=== PATIENT | male | born 1955 | race Caucasian/White ===

== ENCOUNTER 2017-03-19 22:31 | Inpatient (IN) | payer OTHER ==
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
[2017-03-19 23:42] LABS: BASO % 0.5 % (0.0-2.0); EOS % 0.4 % (0.0-4.0); HEMATOCRIT 40.8 % (35.0-51.0); LYMPH # 1.4 K/uL (1.0-4.3); LYMPH % 18.5 % (20.0-40.0); MEAN CELL VOLUME 83.9 fl (80.0-94.0); MEAN CORPUSCULAR HEMOGLOBIN 28.7 pg (27.0-31.0); MEAN CORPUSCULAR HGB CONC 34.2 g/dL (33.0-37.0); MEAN PLATELET VOLUME 6.9 fl (7.2-11.7); MONO # 0.6 K/uL (0.0-0.8); MONO % 7.9 % (0.0-10.0); NEUT # 5.4 K/uL (1.8-7.0); NEUT % 72.7 % (50.0-75.0); NRBC % 0.1 % (0.0-0.0); RED CELL DISTRIBUTION WIDTH 14.7 % (11.5-14.5); WHITE BLOOD COUNT 7.4 K/uL (4.8-10.8)
[2017-03-19 23:51] LABS: ALB/GLOB RATIO 1.6 (1.0-2.1); ALCOHOL SERUM 65 mg/dl (0-10); ALKALINE PHOSPHATASE 105 U/L (38-126); ALT/SGPT 46 U/L (21-72); AST/SGOT 25 U/L (17-59); BILIRUBIN,TOTAL 1.2 mg/dl (0.2-1.3); BLOOD UREA NITROGEN 11 mg/dl (9-20); CALCIUM 9.1 mg/dL (8.4-10.2); CARBON DIOXIDE 27 mmol/L (22-30); CHLORIDE 93 mmol/L (98-107); GFR AFRICAN-AMERICAN > 60; GLUCOSE,RANDOM 107 mg/dL (75-110); POTASSIUM 3.6 MMOL/L (3.6-5.0); SODIUM 132 mmol/l (132-148)
[2017-03-20 01:25] LABS: RBC URINE 1 /hpf (0-3); URINE BILIRUBIN NEGATIVE (NEGATIVE); URINE BLOOD SMALL (NEGATIVE); URINE COLOR STRAW (YELLOW); URINE GLUCOSE (UA) NEG (Normal); URINE KETONE NEGATIVE (NEGATIVE); URINE LEUKOCYTE ESTERASE NEG Leu/uL (Negative); URINE PROTEIN NEGATIVE (NEGATIVE); URINE UROBILINOGEN 0.2-1.0 mg/dL (0.2-1.0); WBC URINE < 1 /hpf (0-5)
[2017-03-20] MEDS ORDERED: Sodium Chloride 0.9% 1,000 ML IV STA (02:08)
[2017-03-20 06:45] LABS: CHOLESTEROL 142 mg/dL (0-199)
[2017-03-20 07:15] LABS: THYROID STIMULATING HORMONE 8.72 mIU/ML (0.46-4.68)
[2017-03-20] MEDS: HCTZ/Losartan 12.5/50 Tab PO SCH (09:00)
[2017-03-20] MEDS: Cholecalciferol 1,000 INTLU TAB PO SCH (09:00)
--- NOTE | 2017-03-20 09:04 | RAD ---
HISTORY: Trauma COMPARISON: 05/23/2009. FINDINGS: LUNGS: No active pulmonary disease. PLEURA: No significant pleural effusion identified, no pneumothorax apparent. CARDIOVASCULAR: Normal. OSSEOUS STRUCTURES: No significant abnormalities. VISUALIZED UPPER ABDOMEN: Normal. OTHER FINDINGS: None. IMPRESSION: No active disease. No significant interval change compared to the prior examination(s).
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
--- NOTE | 2017-03-20 09:11 | CT ---
PROCEDURE: CT Cervical Spine without contrast HISTORY: <trauma> COMPARISON: None available. TECHNIQUE: Axial computed tomography images were obtained of the cervical spine without the use of intravenous contrast. Coronal and sagittal reformatted images were created and reviewed. Radiation dose: Total exam DLP = 436.84 mGy-cm. This CT exam was performed using one or more of the following dose reduction techniques: Automated exposure control, adjustment of the mA and/or kV according to patient size, and/or use of iterative reconstruction technique. FINDINGS: VERTEBRAE: No fracture. Normal alignment. No destructive bony lesion. DISCS/SPINAL CANAL/NEURAL FORAMINA: No significant central canal or neural foraminal stenosis. Discs heights are grossly preserved.Incidental finding(s): Non marginal osteophyte T1-T2 PARASPINAL SOFT TISSUES: Unremarkable. OTHER FINDINGS: Known craniotomy changes and underlying encephalomalacia chong change left cerebellar hemisphere. IMPRESSION: No significant or acute findings to account for/ related to the clinical presentation. Concordant results (preliminary interpretation) provided by [employer]. Procedure Completed: 1203 08:00 Preliminary ([facility]) Report: Dictated and Authenticated: 00:28 Final Interpretation: 09:09. March 20, 2017.
--- NOTE | 2017-03-20 09:14 | CT ---
PROCEDURE: CT Chest without contrast HISTORY: trauma COMPARISON: None. TECHNIQUE: Contiguous axial images were obtained through the chest without intravenous contrast enhancement. Sagittal and coronal reconstructions were performed. Radiation dose (DLP): 406.39 mGy-cm. This CT exam was performed using one or more of the following dose reduction techniques: Automated exposure control, adjustment of the mA and/or kV according to patient size, and/or use of iterative reconstruction technique. FINDINGS: LUNGS: Basilar atelectatic change, minimal. No discrete infiltrates, pulmonary nodules, masses. MEDIASTINUM: Unremarkable thoracic aorta. No aneurysm. Normal sized heart. Main pulmonary artery unremarkable. No vascular congestion. No lymphadenopathy. PLEURA: No pleural fluid. No pneumothorax. BONES: No acute fracture. No destructive lesion. UPPER ABDOMEN: Nonobstructing punctate right renal calculi. OTHER FINDINGS: None. IMPRESSION: No significant or acute findings to account for/ related to the clinical presentation. Additional benign and/or incidental findings described above. Concordant results (preliminary interpretation) provided by [employer]. Procedure Completed: 00:06 Preliminary ([facility]) Report: Dictated and Authenticated: 00:27 Final Interpretation: 09:12. March 20, 2017.
[2017-03-20 12:36] LABS: T4 8.81 ug/dl (5.5-11.0)
[2017-03-20] MEDS ORDERED: Gadodiamide 287 MG/ML VIAL (15ML) IV ONE (15:14)
--- NOTE | 2017-03-20 18:18 | MRI ---
PROCEDURE: MRI BRAIN WITH AND WITHOUT CONTRAST HISTORY: head injury, AMS COMPARISON: Head CT without contrast 03/19/2017. TECHNIQUE: Multiplanar, multisequence MR images of the brain were obtained with and without intravenous contrast enhancement. FINDINGS: HEMORRHAGE: A small area of signal dephasing is seen at the right external capsule anteriorly which appears to correspond to an area of punctate hyperdensity in the prior CT examination. While this may represent a small cavernoma, subacute hemorrhage is difficult to exclude here. Calcium deposition is a possibility though the amount of signal artifact appears greater than expected for the size of the punctate finding in the prior CT. Follow-up CT is advised to demonstrate stability of this finding. DWI: No evidence of an acute or early subacute infarction. BRAIN PARENCHYMA: Chronic lacune infarction seen at the right basal ganglia with likely prominent dilated perivascular spaces in the left basal ganglia. Underlying chronic lacunes are not excluded at the left basal ganglia however. Patient seen to be status post a left suboccipital craniectomy with postoperative changes/ cystic encephalomalacia seen at the left cerebellar hemisphere once again. Diffuse cerebral atrophy chronic microangiopathy are reiterated. No suspicious enhancement following gadolinium administration within this distribution with the remainder of the supra and infratentorial brain compartments. ENHANCEMENT: No abnormal intracranial enhancement. VENTRICLES: Unremarkable. No hydrocephalus. CRANIUM: Unremarkable. ORBITS: Grossly unremarkable. PARANASAL SINUSES/MASTOIDS: Clear VASCULAR SYSTEM: Skull base flow voids intact. OTHER FINDINGS: None . 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 Follow-up head CT is advised in 6-12 hours to demonstrate stability of this region. Status post prior left suboccipital craniectomy with postoperative changes noted in the left cerebellum once again. No abnormal intracranial enhancement including at the operative site. Right basal ganglia chronic lacune with dilated perivascular spaces favored over chronic lacunes at the left basal ganglia. Findings discussed with Dr. Hillman 03/20/2017 6:[address] as well as Dr. Brothers.
--- NOTE | 2017-03-20 18:59 | CARD ---
APPROVED REPORT EKG Measurement Heart [id number] <Conclusion> Normal sinus rhythm Normal ECG
--- NOTE | 2017-03-20 19:01 | CARD ---
APPROVED REPORT EKG Measurement Heart [id number] <Conclusion> Normal sinus rhythm Normal ECG
--- NOTE | 2017-03-20 20:03 | CP.PCM.CON ---
History of Present Illness - History of Present Illness History of Present Illness: CONSULT DICTATED POST CONCUSSION SYNDROME MRI BRAIN ??? HYPER DENSITY REPEAT CAT AM IF NEGATIVE FOR NEW BLEED NO FURTHER WORK UP RECURRENT SYNCOPY NEEDS EXTENDED HOUR AMBULATORY VIDEO EEG/ CARDIAC WORK UP / EP STUDIES Past Patient History - Past Medical History & Family History Past Medical History?: Yes - Past Social History Smoking Status: Never Smoked - CARDIAC Hx Cardiac Disorders: Yes Hx Hypercholesterolemia: Yes Hx Hypertension: Yes - PULMONARY Hx Respiratory Disorders: No - NEUROLOGICAL Hx Neurological Disorder: Yes - HEENT Hx HEENT Problems: No - RENAL Hx Chronic Kidney Disease: No - ENDOCRINE/METABOLIC Hx Diabetes Mellitus Type 2: Yes - HEMATOLOGICAL/ONCOLOGICAL Hx Blood Disorders: No - INTEGUMENTARY Hx Dermatological Problems: No - MUSCULOSKELETAL/RHEUMATOLOGICAL Hx Musculoskeletal Disorders: Yes - GASTROINTESTINAL Hx Gastrointestinal Disorders: No - GENITOURINARY/GYNECOLOGICAL Hx Genitourinary Disorders: Yes - PSYCHIATRIC Hx Psychophysiologic Disorder: No - SURGICAL HISTORY Hx Surgeries: Yes Other/Comment: Had neural blastoma removed - ANESTHESIA Hx Anesthesia: Yes Hx Anesthesia Reactions: No Hx Malignant Hyperthermia: No Meds Allergies/Adverse Reactions: Allergies Allergy/AdvReac Type Severity Reaction Status Date / Time No Known Allergies Allergy Verified 03/19/17 22:32 - Medications Medications: Current Medications Acetaminophen (Tylenol 325mg Tab) 650 mg PO Q4 PRN PRN Reason: Pain, Mild (1-3) Amlodipine Besylate (Norvasc) 5 mg PO DAILY [facility] Last Admin: 03/20/17 09:00 Dose: 5 mg Atorvastatin Calcium (Lipitor) 10 mg PO DAILY [facility] Last Admin: 03/20/17 08:59 Dose: 10 mg Cholecalciferol (Vitamin D) 2,000 iu PO DAILY [facility] Last Admin: 03/20/17 09:00 Dose: 2,000 iu HCTZ/Losartan Potassium (Hyzaar 12.5 Mg-50 Mg) 1 tab PO DAILY [facility] Last Admin: 03/20/17 09:00 Dose: 1 tab Metformin HCl (Glucophage) 850 mg PO BID [facility] Last Admin: 03/20/17 16:20 Dose: 850 mg Paroxetine HCl (Paxil) 30 mg PO DAILY [facility] Last Admin: 03/20/17 08:59 Dose: 30 mg Results - Vital Signs Recent Vital Signs: Last Vital Signs Temp 97.8 F 03/20/17 19:42 Pulse 77 03/20/17 19:42 Resp 20 03/20/17 19:42 BP 148/82 03/20/17 19:42 Pulse Ox 97 03/20/17 19:42 - Labs Result Diagrams: 03/19/17 23:30 03/19/17 23:30 Labs: Laboratory Results - last 24 hr 03/19/17 03/19/17 03/19/17 23:29 23:30 23:30 WBC 7.4 RBC 4.86 Hgb 13.9 Hct 40.8 MCV 83.9 MCH 28.7 MCHC 34.2 RDW 14.7 H Plt Count 313 MPV 6.9 L Neut % (Auto) 72.7 Lymph % (Auto) 18.5 L Holmes % (Auto) 7.9 Eos % (Auto) 0.4 Baso % (Auto) 0.5 Neut # 5.4 Lymph # 1.4 Holmes # 0.6 Eos # 0.0 Baso # 0.0 Sodium 132 Potassium 3.6 Chloride 93 L Carbon Dioxide 27 Anion Gap 16 BUN 11 Creatinine 0.7 L Est GFR ( Amer) > 60 Est GFR (Non-Af Amer) > 60 POC Glucose (mg/dL) 121 H Random Glucose 107 Hemoglobin A1c Calcium 9.1 Total Bilirubin 1.2 AST 25 ALT 46 Alkaline Phosphatase 105 Troponin I < 0.0120 Total Protein 8.0 Albumin 4.9 Globulin 3.1 Albumin/Globulin Ratio 1.6 Triglycerides Cholesterol LDL Cholesterol Direct HDL Cholesterol Thyroxine (T4) Total T3 TSH 3rd Generation Urine Color Urine Clarity Urine pH Ur Specific [place] Urine Protein Urine Glucose (UA) Urine Ketones Urine Blood Urine Nitrate Urine Bilirubin Urine Urobilinogen Ur Leukocyte Esterase Urine RBC (Auto) Urine Microscopic WBC Alcohol, Quantitative 65 H 03/20/17 03/20/17 03/20/17 01:11 02:25 05:41 WBC RBC Hgb Hct MCV MCH MCHC RDW Plt Count MPV Neut % (Auto) Lymph % (Auto) Holmes % (Auto) Eos % (Auto) Baso % (Auto) Neut # Lymph # Holmes # Eos # Baso # Sodium Potassium Chloride Carbon Dioxide Anion Gap BUN Creatinine Est GFR ( Amer) Est GFR (Non-Af Amer) POC Glucose (mg/dL) 110 Random Glucose Hemoglobin A1c 6.4 Calcium Total Bilirubin AST ALT Alkaline Phosphatase Troponin I Total Protein Albumin Globulin Albumin/Globulin Ratio Triglycerides Cholesterol LDL Cholesterol Direct HDL Cholesterol Thyroxine (T4) Total T3 TSH 3rd Generation Urine Color Straw Urine Clarity Clear Urine pH 6.0 Ur Specific [place] 1.006 Urine Protein Negative Urine Glucose (UA) Neg Urine Ketones Negative Urine Blood Small Urine Nitrate Negative Urine Bilirubin Negative Urine Urobilinogen 0.2-1.0 Ur Leukocyte Esterase Neg Urine RBC (Auto) 1 Urine Microscopic WBC < 1 Alcohol, Quantitative 03/20/17 03/20/17 03/20/17 05:41 06:49 10:47 WBC RBC Hgb Hct MCV MCH MCHC RDW Plt Count MPV Neut % (Auto) Lymph % (Auto) [place] % (Auto) Eos % (Auto) Baso % (Auto) Neut # Lymph # Holmes # Eos # Baso # Sodium Potassium Chloride Carbon Dioxide Anion Gap BUN Creatinine Est GFR ( Amer) Est GFR (Non-Af Amer) POC Glucose (mg/dL) 94 173 H Random Glucose Hemoglobin A1c Calcium Total Bilirubin AST ALT Alkaline Phosphatase Troponin I < 0.0120 Total Protein Albumin Globulin Albumin/Globulin Ratio Triglycerides 205 H Cholesterol 142 LDL Cholesterol Direct 72 HDL Cholesterol 33 Thyroxine (T4) Total T3 TSH 3rd Generation 8.72 H Urine Color Urine Clarity Urine pH Ur Specific [place] Urine Protein Urine Glucose (UA) Urine Ketones Urine Blood Urine Nitrate Urine Bilirubin Urine Urobilinogen Ur Leukocyte Esterase Urine RBC (Auto) Urine Microscopic WBC Alcohol, Quantitative 03/20/17 03/20/17 03/20/17 11:40 11:40 15:55 WBC RBC Hgb Hct MCV MCH MCHC RDW Plt Count MPV Neut % (Auto) Lymph % (Auto) [place] % (Auto) Eos % (Auto) Baso % (Auto) Neut # Lymph # Holmes # Eos # Baso # Sodium Potassium Chloride Carbon Dioxide Anion Gap BUN Creatinine Est GFR ( Amer) Est GFR (Non-Af Amer) POC Glucose (mg/dL) 109 Random Glucose Hemoglobin A1c Calcium Total Bilirubin AST ALT Alkaline Phosphatase Troponin I < 0.0120 Total Protein Albumin Globulin Albumin/Globulin Ratio Triglycerides Cholesterol LDL Cholesterol Direct HDL Cholesterol Thyroxine (T4) 8.81 Total T3 0.828 L TSH 3rd Generation Urine Color Urine Clarity Urine pH Ur Specific [place] Urine Protein Urine Glucose (UA) Urine Ketones Urine Blood Urine Nitrate Urine Bilirubin Urine Urobilinogen Ur Leukocyte Esterase Urine RBC (Auto) Urine Microscopic WBC Alcohol, Quantitative
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
[2017-03-20] MEDS: Lidocaine 5% Patch TD SCH (23:15)
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
[2017-03-21] MEDS: Cholecalciferol 1,000 INTLU TAB PO SCH (08:56)
--- NOTE | 2017-03-21 09:09 | EEG ---
DATE: 03/20/2017 This is a 16-channel electroencephalogram of awake and drowsy adult. During the study, photic stimulation was performed. Hyperventilation was not performed. The resting electroencephalogram consists of 20 to 30 microvolts diffuse theta activity seen at the parietal and occipital leads. Anteriorly, fast activity superimposed with 2 to 3 Hz delta activity seen at frontal and central leads. The photic stimulation did not evoke driving response noted at 2 to 20 Hz. IMPRESSION: This is an abnormal electroencephalogram because of persistent slowing throughout the record suggestive of bilateral cerebral dysfunction. This is probably secondary to metabolic, vascular or degenerative process. Please correlate the finding with the neurological and radiological studies. If clinical suspicion is high, the patient should have extended hour ambulatory video electroencephalogram. This can be done as outpatient. Alessio Hillman MD
[2017-03-21] MEDS: HCTZ/Losartan 12.5/50 Tab PO SCH (09:11)
[2017-03-21] MEDS: Lidocaine 5% Patch TD SCH (09:11)
--- NOTE | 2017-03-21 10:37 | CP.PCM.CON ---
History of Present Illness - History of Present Illness History of Present Illness: 62 year old male admitted with syncopal episode in the setting of alcohol use and known history of brain tumor. S/p fall and c/o of back pain. Pt denies cp or sob. Pt denies palpitations. Pt reports presyncopal episode in gym perhaps related to ? hypotension. Normal Sinus Rhythm on admission. No history of valvular heart disease. Past Patient History - Past Medical History & Family History Past Medical History?: Yes - Past Social History Smoking Status: Never Smoked - CARDIAC Hx Cardiac Disorders: Yes Hx Hypercholesterolemia: Yes Hx Hypertension: Yes - PULMONARY Hx Respiratory Disorders: No - NEUROLOGICAL Hx Neurological Disorder: Yes - HEENT Hx HEENT Problems: No - RENAL Hx Chronic Kidney Disease: No - ENDOCRINE/METABOLIC Hx Diabetes Mellitus Type 2: Yes - HEMATOLOGICAL/ONCOLOGICAL Hx Blood Disorders: No - INTEGUMENTARY Hx Dermatological Problems: No - MUSCULOSKELETAL/RHEUMATOLOGICAL Hx Musculoskeletal Disorders: Yes - GASTROINTESTINAL Hx Gastrointestinal Disorders: No - GENITOURINARY/GYNECOLOGICAL Hx Genitourinary Disorders: Yes - PSYCHIATRIC Hx Psychophysiologic Disorder: No - SURGICAL HISTORY Hx Surgeries: Yes Other/Comment: Had neural blastoma removed - ANESTHESIA Hx Anesthesia: Yes Hx Anesthesia Reactions: No Hx Malignant Hyperthermia: No Meds Allergies/Adverse Reactions: Allergies Allergy/AdvReac Type Severity Reaction Status Date / Time No Known Allergies Allergy Verified 03/19/17 22:32 - Medications Medications: Current Medications Acetaminophen (Tylenol 325mg Tab) 650 mg PO Q4 PRN PRN Reason: Pain, Mild (1-3) Amlodipine Besylate (Norvasc) 5 mg PO DAILY [facility] Last Admin: 03/21/17 09:12 Dose: 5 mg Atorvastatin Calcium (Lipitor) 10 mg PO DAILY [facility] Last Admin: 03/21/17 08:57 Dose: 10 mg Cholecalciferol (Vitamin D) 2,000 iu PO DAILY [facility] Last Admin: 03/21/17 08:56 Dose: 2,000 intlu HCTZ/Losartan Potassium (Hyzaar 12.5 Mg-50 Mg) 1 tab PO DAILY [facility] Last Admin: 03/21/17 09:11 Dose: 1 tab Lidocaine (Lidoderm) 1 ea TD DAILY [facility] Last Admin: 03/21/17 09:11 Dose: 1 ea Metformin HCl (Glucophage) 850 mg PO BID [facility] Last Admin: 03/21/17 08:56 Dose: 850 mg Paroxetine HCl (Paxil) 30 mg PO DAILY [facility] Last Admin: 03/21/17 08:57 Dose: 30 mg Physical Exam - Constitutional Appears: No Acute Distress - Neck Exam Neck exam: Positive for: Normal Inspection - Respiratory Exam Respiratory Exam: Clear to Auscultation Bilateral - Cardiovascular Exam Cardiovascular Exam: REGULAR RHYTHM - GI/Abdominal Exam GI & Abdominal Exam: Normal Bowel Sounds - Extremities Exam Extremities exam: Positive for: normal inspection Results - Vital Signs Recent Vital Signs: Last Vital Signs Temp 97.8 F 03/21/17 08:00 Pulse 70 03/21/17 09:12 Resp 20 03/21/17 08:00 BP 159/88 H 03/21/17 09:12 Pulse Ox 98 03/21/17 08:00 - Labs Result Diagrams: 03/19/17 23:30 03/19/17 23:30 Labs: Laboratory Results - last 24 hr 03/20/17 03/20/17 03/20/17 05:41 10:47 11:40 POC Glucose (mg/dL) 173 H Hemoglobin A1c 6.4 Troponin I < 0.0120 Thyroxine (T4) Total T3 03/20/17 03/20/17 03/20/17 11:40 15:55 22:47 POC Glucose (mg/dL) 109 108 Hemoglobin A1c Troponin I Thyroxine (T4) 8.81 Total T3 0.828 L 03/21/17 05:58 POC Glucose (mg/dL) 106 Hemoglobin A1c Troponin I Thyroxine (T4) Total T3 Assessment & Plan - Assessment and Plan (Free Text) Assessment: Syncopal episode more likely related to alcohol use and ? post concussion. No clear cardiac etiology. Normal EKG at baseline, Normal cardiac physical exam. Would pursue neurologic causes of syncope at this point. Arrythmias less likely. EP studies not indicated Would f/u as outpt and monitor bp as syncope may have orthostatic component/ diabetes
--- NOTE | 2017-03-21 12:18 | RAD ---
PROCEDURE: Radiographs of the Chest and Left Ribs. HISTORY: sp fall, pain COMPARISON: None available. TECHNIQUE: Frontal radiograph of the chest and multiple oblique radiographs of the left ribs were obtained. FINDINGS: LEFT RIBS: Nondisplaced 11th rib fracture. The finding is marked on the study for review. LUNGS: Clear. PLEURA: No pneumothorax or pleural fluid. CARDIOVASCULAR: Normal sized heart. No pulmonary vascular congestion. OTHER FINDINGS: None. IMPRESSION: Acute nondisplaced fracture lateral aspect left 11th rib. TechUnremarkable radiographs of the chest and left ribs. No left rib fracture.
--- NOTE | 2017-03-21 12:21 | RAD ---
PROCEDURE: Radiographs of the Lumbar Spine. HISTORY: Lower back Pain. No history of recent/ related trauma provided COMPARISON: No prior. FINDINGS: BONES: Normal alignment. No listhesis. No fracture. DISC SPACES: Unremarkable. OTHER FINDINGS: Constipation without fecal impaction or obstruction. Calcified nonaneurysmal abdominal aorta. IMPRESSION: Unremarkable radiographs of the lumbar spine.
--- NOTE | 2017-03-21 15:06 | CT ---
PROCEDURE: CT HEAD WITHOUT CONTRAST. HISTORY: abn mri R/O bleed COMPARISON: Head CT without contrast 03/19/2017 TECHNIQUE: Axial computed tomography images were obtained through the head/brain without intravenous contrast. Radiation dose: Total exam DLP = 860.74 mGy-cm. This CT exam was performed using one or more of the following dose reduction techniques: Automated exposure control, adjustment of the mA and/or kV according to patient size, and/or use of iterative reconstruction technique. FINDINGS: HEMORRHAGE: Taking into account prior CT 07/17/2012 and hemosiderin related dephasing in MRI of 03/20/2017 at the anterior segment right external capsule, there is no suspicious evidence to suggest hemorrhage anywhere throughout the intracranial contents including at the right external capsule in the MR finding therefore is felt to represent a probable cavernoma or chronic hemosiderin related to prior minimal bleed. BRAIN: Age-related neuro degenerative changes are reiterated swells chronic lacune right basal ganglia and dilated perivascular space is favored over lacunes at the left basal ganglia. Prior left suboccipital craniectomy again seen with chronic postoperative changes in the left cerebellum. VENTRICLES: Unremarkable. No hydrocephalus. PARANASAL SINUSES: Unremarkable as visualized. No significant inflammatory changes. MASTOID AIR CELLS: Unremarkable as visualized. No inflammatory changes. OTHER FINDINGS: None. IMPRESSION: Stable CT of the head without contrast. No acute or subacute intracranial hemorrhage appreciated. 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 Reiterated age-related degenerative changes, right basal ganglia chronic lacune and likely left basal ganglia dilated perivascular spaces. Left suboccipital craniectomy and chronic left cerebellar postoperative changes again evident.
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
[2017-03-22] MEDS: HCTZ/Losartan 12.5/50 Tab PO SCH (08:34)
[2017-03-22] MEDS: Lidocaine 5% Patch TD SCH (08:35)
[2017-03-22] MEDS: Cholecalciferol 1,000 INTLU TAB PO SCH (08:36)
[2017-03-23 00:14] VITALS: RESP 18
[2017-03-23 08:19] VITALS: BP 144/81; TEMP 98.1; O2SAT 97
[2017-03-23] MEDS: HCTZ/Losartan 12.5/50 Tab PO SCH (08:27)
[2017-03-23] MEDS: Lidocaine 5% Patch TD SCH (08:27)
[2017-03-23] MEDS: Cholecalciferol 1,000 INTLU TAB PO SCH (08:28)
[2017-03-23 10:46] VITALS: PULSE 74
--- NOTE | 2017-03-24 09:01 | PN ---
DATE: 03/22/2017 SUBJECTIVE: The patient is asymptomatic. No sign of confusion. No sign of dizziness. No sign of visual disturbances and passing out spell. PHYSICAL EXAMINATION: VITAL SIGNS: 147/82, mean arterial pressure of 103, respiratory rate 18, temperature 97.6, pulse rate 74. The patient's examination, which is unchanged compared with the previous examination. LABORATORY DATA: His repeat CT of the head, no acute hemorrhagic process as recommended from MRI report. ASSESSMENT AND PLAN: The patient is neurologically stable. The patient can be discharged and as recommended, the patient should have followup visit with me as outpatient. The patient should have extended ambulatory encephalogram to study his electrophysiological activities of his brain during his awake stage as well as the sleep stage. The patient's condition had been extensively discussed. The patient will be followed by me as outpatient. Alessio Hillman MD
== END 2017-03-23 13:55 | disposition home or self-care (01) | DRG 103 ==
LOC: H.ER 22:31 → H.ERHOLD 03-20 02:53 → H.TEL 03-20 04:17 → OBSVTOIN 03-20 14:47
PROVIDERS: ADMIT Family Medicine Geriatric Medicine; ATTEND Family Medicine Geriatric Medicine
PROC: 3E0234Z Introduction of Serum, Toxoid and Vaccine into Muscle, Percutaneous Approach (ICD-10-PCS; principal; 2017-03-22)
DX: F07.81 Postconcussional syndrome (principal); E11.40 Type 2 diabetes mellitus with diabetic neuropathy, unspecified; S22.32XA Fracture of one rib, left side, initial encounter for closed fracture; W10.0XXA Fall (on)(from) escalator, initial encounter; F10.129 Alcohol abuse with intoxication, unspecified; Y90.3 Blood alcohol level of 60-79 mg/100 ml; I10 Essential (primary) hypertension; E78.00 Pure hypercholesterolemia, unspecified; E78.5 Hyperlipidemia, unspecified; Z23 Encounter for immunization; Z87.820 Personal history of traumatic brain injury; Y92.9 Unspecified place or not applicable